=== PATIENT | female | born 1965 | race Caucasian/White ===

== ENCOUNTER → 2017-09-04 | Outpatient (CLI) | payer OTHER | END | disposition home or self-care (01) | LOC: MAMMO 13:00 | DX: Z12.31 Encounter for screening mammogram for malignant neoplasm of breast (principal) ==

== ENCOUNTER 2024-10-12 13:16 | Emergency (ER) | payer MEDICARE ==
[2024-10-12 13:38] LABS: BASO % 0.3 % (0.0-1.0); EOS # 0.1 10*3/uL (0.0-0.4); EOS % 1.4 % (1.0-4.0); MEAN CELL VOLUME 90.9 fl (81.0-99.0); MEAN CORPUSCULAR HGB 29.7 pg (27.0-31.0); MEAN CORPUSCULAR HGB CONC 32.6 g/dl (33.0-37.0); MEAN PLATELET VOLUME 8.5 fl (9.6-12.3); MONO # 0.9 10*3/uL (0.1-1.0); MONO % 14.1 % (3.0-9.0); NEUT # 4.4 10*3/uL (2.3-7.9); NEUT % 69.2 % (47.0-73.0); PLATELET COUNT AUTOMATED 279 10*3/uL (130-400); RED BLOOD COUNT 4.62 10*6/uL (4.10-5.10); RED CELL DISTRI WIDTH 13.8 % (0-14.5); WHITE BLOOD COUNT 6.4 10*3/uL (4.8-10.8)
[2024-10-12 13:58] LABS: BUN 10 mg/dl (9-23); CHLORIDE 101 mmol/L (98-107); POTASSIUM 3.5 mmol/L (3.4-5.1)
[2024-10-12] MEDS ORDERED: CIPROFLOXACIN2.5 M1 OPH (14:10)
[2024-10-12] MEDS ORDERED: AVPAK AZITHROM250 M1 PO (14:10)
== END 2024-10-12 14:16 | disposition home or self-care (01) ==
LOC: ED 13:16
PROVIDERS: Emergency Medicine
DX: H10.9 Unspecified conjunctivitis (principal); Z20.822 Contact with and (suspected) exposure to COVID-19; J40 Bronchitis, not specified as acute or chronic; I10 Essential (primary) hypertension; E11.9 Type 2 diabetes mellitus without complications; F32.A Depression, unspecified; E78.5 Hyperlipidemia, unspecified; M19.90 Unspecified osteoarthritis, unspecified site; Z98.890 Other specified postprocedural states

== ENCOUNTER 2025-08-17 10:28 | Emergency (ER) | payer MEDICARE ==
[~2025-08-17 10:28] MED LIST: AVPAK AZITHROM250 M1 PO; CIPROFLOXACIN2.5 M1 OPH
[2025-08-17] MEDS ORDERED: BACLOFEN20 M1 PO (11:07)
[2025-08-17] MEDS ORDERED: CITALOPRAM20 MG PO (11:07)
[2025-08-17] MEDS ORDERED: DONEPEZIL HCL10 MG PO (11:08)
[2025-08-17] MEDS ORDERED: B121000 MCG/1 IM (11:08)
[2025-08-17] MEDS ORDERED: DIVALPROEX SOD250 MG PO (11:08)
[2025-08-17] MEDS ORDERED: LEADER ASPIRIN325 MG PO (11:09)
[2025-08-17] MEDS ORDERED: NATURE'S BLEND F1 MG PO (11:09)
[2025-08-17] MEDS ORDERED: Bactroban Oint22 GM T (11:10)
[2025-08-17] MEDS ORDERED: POTASSIUM CHLO10 MEQ PO (11:11)
[2025-08-17] MEDS ORDERED: AVPAK EXTENDED100 M1 PO (11:11)
[2025-08-17] MEDS ORDERED: SIMVASTATIN80 MG PO (11:11)
[2025-08-17] MEDS ORDERED: GERI-TUSSI100 MG/5 M PO (11:13)
[2025-08-17] MEDS ORDERED: DIPHENHYDRAMINE25 M7 PO (11:13)
[2025-08-17] MEDS ORDERED: Tdap Vaccine 0.5 ML SYR (Adult Vaccine) IM ONE (11:30)
== END 2025-08-17 14:14 | disposition home or self-care (01) ==
LOC: ED 10:28
DX: S01.01XA Laceration without foreign body of scalp, initial encounter (principal); I10 Essential (primary) hypertension; E11.9 Type 2 diabetes mellitus without complications; F32.A Depression, unspecified; E78.5 Hyperlipidemia, unspecified; M19.90 Unspecified osteoarthritis, unspecified site; W19.XXXA Unspecified fall, initial encounter; Y93.89 Activity, other specified; Y92.89 Other specified places as the place of occurrence of the external cause; Y99.8 Other external cause status